=== PATIENT | female | born 1960 | race Caucasian/White ===

== ENCOUNTER 2017-08-17 17:08 | Emergency (ER) | payer OTHER ==
[~2017-08-17] VITALS: Wt 59.2 kg
[2017-08-17] MEDS ORDERED: KETOROLAC 30 MG INJ IV STA (18:35)
[2017-08-17] MEDS ORDERED: AMPICILLIN/SULB 3 GM/NS (PMX) 100 ML IVPB ONE (19:00)
[2017-08-17] MEDS ORDERED: DEXAMETHASONE 10 MG/ML 1 ML INJ IV ONE (19:00)
[2017-08-17 19:18] LABS: BASOPHIL # 0.1 10^3/ul (0.0-0.1); BASOPHILS % 0.6 % (0.0-2.0); EOSINOPHILS # 0.2 10^3/ul (0.0-0.5); EOSINOPHILS % 1.9 % (0.0-7.0); HEMOGLOBIN 12.4 g/dl (12.0-16.0); LYMPHOCYTES # 3.3 10^3/ul (0.8-2.9); LYMPHOCYTES % 26.5 % (15.0-51.0); MEAN CORPUSCULAR HEMOGLOBIN 30.6 pg (29.0-33.0); MEAN CORPUSCULAR HGB CONC 32.6 g/dl (32.0-37.0); MEAN CORPUSCULAR VOLUME 93.8 fl (82.0-101.0); MEAN PLATELET VOLUME 9.3 fl (7.4-10.4); MONOCYTE # 0.8 10^3/ul (0.3-0.9); MONOCYTES % 6.6 % (0.0-11.0); NEUTROPHIL # 7.7 10^3/ul (1.6-7.5); NEUTROPHILS % 62.7 % (39.0-77.0); PLATELET COUNT 383 10^3/UL (140-415); RED BLOOD COUNT 4.05 10^6/ul (4.20-5.40); RED CELL DISTRIBUTION WIDTH 12.4 % (11.5-14.5); WHITE BLOOD COUNT 12.3 10^3/ul (4.8-10.8)
[2017-08-17 19:36] LABS: ALBUMIN 4.3 g/dl (3.3-4.9); ALBUMIN/GLOBULIN RATIO 1.02; BILIRUBIN,INDIRECT 0.2 mg/dl (0-1.1); BILIRUBIN,TOTAL 0.2 mg/dl (0.2-1.3); CALCIUM 9.6 mg/dl (8.4-10.2); CREATININE 0.67 mg/dl (0.44-1.00); TOTAL PROTEIN 8.5 g/dl (6.1-8.1)
[2017-08-17] MEDS ORDERED: IOHEXOL 300MG/ML 150 ML BTL ONE (20:21)
[2017-08-17] MEDS ORDERED: SOD CHLORIDE 0.9% 100 ML ONE (20:21)
[2017-08-17] MEDS ORDERED: SOD CHLORIDE 0.9% 1,000 ML IV STA (20:36)
--- NOTE | 2017-08-17 21:01 | RADRPT ---
PROCEDURE: CT scan of the neck with contrast. CLINICAL INDICATION: Throat pain. TECHNIQUE: CT scan of the neck was performed on the multi-slice scanner . Contiguous axial images were obtained throughout the neck with coronal and sagittal reformatted images. 80 cc of Omnipaque 300 was administered. The exam CTDI = 8.84 and the DLP equals 245.27 mGy-cm. DICOM images are avail able. One or more of the following dose reduction techniques were used: Automated exposure control. Adjustment of the mA and/or kV according to patient size. Use of iterative reconstruction technique. COMPARISON: None available FINDINGS: There is asymmetric enlargement of the left palatine tonsil. There is approximately 2 x 1.8 cm fluid density structure within the enlarged palatine tonsil suggestive of peritonsillar abscess. There is a large left retropharyngeal lymph node measures up to 0.9 cm in short axis. There is a large left neural to be lymph nodes measures up to 1.4 cm in short axis. Punctate calcifications are seen in th e right palatine tonsil. The hypopharynx, larynx, and trachea are unremarkable. No airway compromis e is seen. The parotid glands, submandibular glands, and thyroid gland are all normal. Imaging o btained through the lung apices revealed no acute abnormality. The surrounding soft tissues and musc les are unremarkable as well. IMPRESSION: 1. Asymmetric enlargement of the left tonsil with focal fluid density collection measures up to 2 cm suggestive of tonsillitis with peritonsillar abscess. Correlate with clinical presentation. Necroti c tonsillar malignancy is not entirely excluded but felt much less likely. 2. Mildly enlarged left-sided regional lymph nodes including left retropharyngeal and left level II a lymph nodes measures up to 1.4 cm in short axis. RPTAT: HHO .Amauri Ta MD, MD Date Time Electronically viewed and signed by .Amauri Ta MD, on 08/17/2017 21:00 .O/
[2017-08-17] MEDS ORDERED: LIDOCAINE 1%/EPI 30 ML INJ INJ STA (21:30)
--- NOTE | 2017-08-17 21:40 | ERD ---
ER Documentation Chief Complaint Chief Complaint sore throat HPI 57 year old female presents to the emergency department complaining of worsening moderate to severe sore throat for 4 days that worsened today. Patient states she went to her PCP and was given prescription for amoxicillin, she is on her second day. Patient states that it has not helped her. Denies shortness of breath. ROS All systems reviewed and are negative except as per history of present illness. Medications Home Meds Active Scripts Ibuprofen* (Motrin*) 400 Mg Tab, 400 MG PO Q6H Y for PAIN AND OR ELEVATED TEMP, #30 TAB Prov:MARKOS MOORE PA-C 08/17/17 Clindamycin Hcl* (Clindamycin Hcl*) 300 Mg Capsule, 300 MG PO TID for 10 Days, CAP Prov:MARKOS MOORE PA-C 08/17/17 Allergies Allergies: Coded Allergies: No Known Allergy (Unverified , 08/17/17) PMhx/Soc Medical and Surgical Hx: pt denies Medical Hx, pt denies Surgical Hx Hx Alcohol Use: No Hx Substance Use: No Hx Tobacco Use: No Smoking Status: Never smoker Physical Exam Vitals Vital Signs Date Time Temp Pulse Resp B/P Pulse Ox O2 Delivery O2 Flow Rate FiO2 08/17/17 17:21 100.1 111 20 148/71 98 Physical Exam Const: WDWN Head: Atraumatic Eyes: Normal Conjunctiva ENT: Normal External Ears, Nose left peritonsillar swelling Neck: Full range of motion..~ No meningismus. Resp: Clear to auscultation bilaterally Cardio: Regular rate and rhythm, no murmurs Abd: Soft, non tender, non distended. Normal bowel sounds Skin: No petechiae or rashes Back: No midline or flank tenderness Ext: No cyanosis, or edema Neur: Awake and alert Psych: Normal Mood and Affect Result Diagram: 08/17/17190408/17/171904 Results 24 hrs Laboratory Tests Test 08/17/17 19:05 White Blood Count 12.310^3/ul Red Blood Count 4.0510^6/ul Hemoglobin 12.4g/dl Hematocrit 38.0% Mean Corpuscular Volume 93.8fl Mean Corpuscular Hemoglobin 30.6pg Mean Corpuscular Hemoglobin Concent 32.6g/dl Red Cell Distribution Width 12.4% Platelet Count 28602^3/UL Mean Platelet Volume 9.3fl Neutrophils % 62.7% Lymphocytes % 26.5% Monocytes % 6.6% Eosinophils % 1.9% Basophils % 0.6% Nucleated Red Blood Cells % 0.0/100WBC Neutrophils # 7.710^3/ul Lymphocytes # 3.310^3/ul Monocytes # 0.810^3/ul Eosinophils # 0.210^3/ul Basophils # 0.110^3/ul Nucleated Red Blood Cells # 0.010^3/ul Sodium Level 142mmol/L Potassium Level 4.0mmol/L Chloride Level 102mmol/L Carbon Dioxide Level 29mmol/L Anion Gap 15 Blood Urea Nitrogen 10mg/dl Creatinine 0.67mg/dl Glucose Level 115mg/dl Calcium Level 9.6mg/dl Total Bilirubin 0.2mg/dl Direct Bilirubin 0.00mg/dl Indirect Bilirubin 0.2mg/dl Aspartate Amino Transf (AST/SGOT) 20IU/L Alanine Aminotransferase (ALT/SGPT) 36IU/L Alkaline Phosphatase 145IU/L Total Protein 8.5g/dl Albumin 4.3g/dl Globulin 4.20g/dl Albumin/Globulin Ratio 1.02 Current Medications Medications (Trade) Dose Ordered Sig/Sahra Route PRN Reason Start Time Stop Time Status Last Admin Dose Admin Ketorolac Tromethamine 30 mg 30 mg ONCE STAT IV 08/17/17 18:35 08/17/17 18:37 DC 08/17/17 19:02 Ampicillin Sodium/ Sulbactam Sodium (Unasyn 3gm/NS (Pmx)) 100 ml @ 100 mls/hr ONCE ONCE IVPB 08/17/17 19:00 08/17/17 19:59 DC 08/17/17 19:17 Dexamethasone (Decadron) 10 mg ONCE ONCE IV 08/17/17 19:00 08/17/17 19:01 DC 08/17/17 19:02 IV Flush 10 ml 10 ml STK-MED ONCE .ROUTE 08/17/17 20:21 08/17/17 20:22 DC 08/17/17 20:47 Sodium Chloride (NS) 100 ml @ ud STK-MED ONCE .ROUTE 08/17/17 20:21 08/17/17 20:22 DC 08/17/17 20:47 Iohexol 150 ml 150 ml STK-MED ONCE .ROUTE 08/17/17 20:21 08/17/17 20:22 DC 08/17/17 20:47 Sodium Chloride (NS) 1,000 ml @ 1,000 mls/hr Q1H STAT IV 08/17/17 20:36 08/17/17 21:35 DC 08/17/17 20:41 Lidocaine/ Epinephrine (Xylocaine 1%/ Epi (Pf)) 30 ml ONCE STAT INJ 08/17/17 21:30 08/17/17 21:31 DC Procedures/MDM 57 year old female presents to the emergency department with left peritonsillar abscess. Patient appears nontoxic, airways intact well-appearing and stable to be discharged home to follow-up with PCP and ENT. IV access was established, Lab work was drawn. CBC did not show any evidence of significant leukocytosis or anemia. CMP did not show any evidence of renal, liver, or electrolyte abnormalities. CT neck: 1. Asymmetric enlargement of the left tonsil with focal fluid density collection measures up to 2 cm suggestive of tonsillitis with peritonsillar abscess. Correlate with clinical presentation. Necrotic tonsillar malignancy is not entirely excluded but felt much less likely. 2. Mildly enlarged left-sided regional lymph nodes including left retropharyngeal and left level II a lymph nodes measures up to 1.4 cm in short axis. Patient was given unasyn, toradol, fluids in the ED. I have consulted supervising physician who consulted ENT who preformed I&D in the ED Patient stable to be discharged home with prescription for clindamycin and return precautions Departure Diagnosis: Primary Impression: Abscess, peritonsillar Condition: Stable MARKOS MOORE PA-C Aug 17, 2017 21:40
[2017-08-17] MEDS ORDERED: CLIN-73 PO (22:06)
[2017-08-17] MEDS ORDERED: IBUP400T22 PO (22:07)
== END 2017-08-17 22:22 | disposition home or self-care (01) ==
LOC: FTE 17:08
DX: J36 Peritonsillar abscess (principal)
CPT/HCPCS: 70491; 80053; 85025; J0295; J1100; J1885; J7030; Q9967; Z7610; 36415; 96374; 96375